=== PATIENT | male | born 1990 ===

== ENCOUNTER 2023-02-09 19:00 | Emergency (ER) | payer BC ==
[~2023-02-09] VITALS: Ht 175.3 cm; Wt 104.3 kg
[2023-02-09] MEDS ORDERED: DULO30CA2 PO (19:21)
[2023-02-09] MEDS ORDERED: QUET100T PO (19:21)
[2023-02-09] MEDS ORDERED: BUSP10TA3 PO (19:21)
[2023-02-09 19:58] LABS: BASOPHILS # (AUTO) 0.2 K/UL (0.0-0.2); BASOPHILS % (AUTO) 3.2 % (0.0-2.0); EOSINOPHILS # (AUTO) 0.2 K/uL (0.0-0.7); EOSINOPHILS % (AUTO) 3.5 % (0.0-7.0); HEMATOCRIT 44.8 % (36.7-47.1); HEMOGLOBIN 15.4 g/dL (12.5-16.3); LYMPHOCYTES # (AUTO) 1.2 K/uL (0.8-4.8); LYMPHOCYTES % (AUTO) 17.5 % (20.5-51.5); MEAN CORPUSCULAR HEMOGLOBIN 28.3 uug (23.8-33.4); MEAN CORPUSCULAR HGB CONC 34 g/dL (32.5-36.3); MEAN CORPUSCULAR VOLUME 82.2 fL (73.0-96.2); MONOCYTES # (AUTO) 0.6 K/uL (0.1-1.30); MONOCYTES % (AUTO) 8.9 % (0.0-11.0); NEUTROPHILS # (AUTO) 4.6 K/uL (1.8-8.9); NEUTROPHILS % (AUTO) 66.9 % (38.5-71.5); PLATELET COUNT (AUTO) 228 K/uL (152-348); RED BLOOD CELL COUNT(AUTO) 5.45 MIL/uL (4.06-5.63); RED CELL DISTRIBUTION WIDTH 13.1 % (12.1-16.2); WHITE BLOOD COUNT (AUTO) 6.9 K/uL (3.6-10.2)
[2023-02-09] MEDS ORDERED: HYDROMORPHONE 1 MG/1 ML DISP.SYRIN IV ONE (20:00)
[2023-02-09] MEDS ORDERED: KETOROLAC TROMETHAMINE 15 MG INJ IVP ONE (20:00)
[2023-02-09] MEDS ORDERED: ONDANSETRON 4 MG/2 ML VIAL IV ONE (20:00)
[2023-02-09 20:01] LABS: DIFFERENTIAL COMMENT 1
[2023-02-09] MEDS ORDERED: HYDROMORPHONE 1 MG/1 ML DISP.SYRIN ONE (20:03)
[2023-02-09] MEDS ORDERED: KETOROLAC TROMETHAMINE 30 MG INJ ONE (20:03)
[2023-02-09] MEDS ORDERED: ONDANSETRON 4 MG/2 ML VIAL ONE (20:03)
[2023-02-09 20:06] LABS: CALCIUM 9.4 mg/dL (8.5-10.1); CREATININE 0.8 mg/dL (0.6-1.3); POTASSIUM 3.9 mmol/L (3.5-5.1)
[2023-02-09 20:12] LABS: ALBUMIN 3.6 g/dL (3.4-5.0); BILIRUBIN,DIRECT 0.1 mg/dL (0.0-0.2); BILIRUBIN,TOTAL 0.5 mg/dL (0.2-1.0); TOTAL PROTEIN, SERUM 7.3 g/dL (6.4-8.2)
[2023-02-09] MEDS ORDERED: OMEP40CA21 PO (22:05)
[2023-02-09] MEDS ORDERED: DICY20TA11 PO (22:05)
[2023-02-09] MEDS ORDERED: HYDR-3980 PO (22:05)
[2023-02-09 22:53] VITALS: BP 134/81; O2SAT 97
== END 2023-02-09 22:54 | disposition home or self-care (01) ==
LOC: ER 19:04
DX: R10.11 Right upper quadrant pain (principal); F17.210 Nicotine dependence, cigarettes, uncomplicated; Z88.0 Allergy status to penicillin; Z79.899 Other long term (current) drug therapy
CPT/HCPCS: 99285; 96374; 76705; 96375; 80076; 80048; 83690; 85025; 36415; J1885; J2405; J1170; A4663